=== PATIENT | female | born 1955 | race Caucasian/White ===

== ENCOUNTER 2016-12-31 09:25 | Emergency (ER) | payer OTHER ==
[~2016-12-31] VITALS: Ht 162.6 cm; Wt 70.5 kg
[~2016-12-31 09:25] MED LIST: ASPI81TA2 PO; GABA300C6 PO; MULT-1018 PO; TYL325 PO; VITA400T9 PO
[2016-12-31 09:28] VITALS: BP 115/79; PULSE 81; RESP 16; O2SAT 98
--- NOTE | 2016-12-31 09:43 | ED.REPORT ---
HPI-General Illness Date of Service Dec 31, 2016 ED Provider: Rachael Earl MD A 61 year old female presents to the ED complaining of chest pain. Within the past couple weeks, the patient reports experiencing intermittent symptoms of chest pain present in different parts of her chest, particularly in the center and left. Chest pain has regularly been accompanied by tingling in both arms, dizziness, and nausea, and the patient states that they have generally not been feeling like themselves. Symptoms became worse last night. She reports that the symptoms are not exacerbated or relieved by anything. She reports feeling dizzy and being in a little bit of pain right now. Yesterday, she recently had an echocardiogram performed for a heart murmur. She took 2 baby aspirin this morning. She is accompanied by her and brother. Nursing Notes Stated Complaint: CHEST PAIN Chief Complaint: Chest Pain Nursing Notes Reviewed: Yes Allergies: Coded Allergies: No Known Allergies (Verified , 12/31/16) Scheduled Acetaminphen-Expunged Drug, Do Not Renew! (Acetaminphen-Expunged Drug, Do Not Renew!) 325 Mg Tablet 650 MG PO Q4HP Aspirin-Expunged Drug, Do Not Renew! (Aspirin-Expunged Drug, Do Not Renew!) 81 Mg Tablet 81 MG PO DAILY Gabapentin-Expunged Drug, Do Not Renew! (Gabapentin-Expunged Drug, Do Not Renew! ) 300 Mg Capsule 300 MG PO 1-2 daily MULTIVITAMIN-Expunged Drug, Do Not Renew! (MULTI VITAMIN -Expunged Drug, Do Not Renew!) 1 Each Tablet 1 EACH PO DAILY VITAMIN E-Expunged Drug, Do Not Renew! (VITAMIN E-Expunged Drug, Do Not Renew!) 400 Unit Tablet 400 UNIT PO 1-2 daily General Time Seen by MD: 09:42 Chief Complaint Chest pain Hx Obtained From: Patient, Spouse Arrived By: Walk-in Sudden in Onset?: No Onset Occurred: Onset unknown (Symptoms have been present for the last few weeks and got worse last night.) Symptom Duration: Intermittent Location: : Chest Severity: Current: Moderate Severity: Maximum: Moderate Recent Healthcare: Recent doctor visit Similar Sx Previous: No Past Medical History Past Medical History Dr. Jaycee Pacheco is patient's PCP. Echocardiogram done yesterday, result being microvalve regurgitation. Recently had tooth pulled and implant put in, subsequently given hydrocodone for recovery. Takes Gabapentin for hot flashes. Hx of Ovarian cancer, 7 years ago resulting in radical hysterectomy. Patient has an appointment to see Dr. Cassidy, bulb grader in a week. Past Surgical History Reports: Hysterectomy (Radical hysterectomy for ovarian cancer. ) Family History Mother had aortic aneurism. No family Hx of heart disease. Smoking History Never Smoker Social History Alcohol Use: Denies alcohol use Drug Use: Denies drug use Ambulatory Status Independent Review of Systems Tingling sensation in both arms. Full Review of Systems Constitutional: Denies: Chills, Fever Respiratory: Denies: Non-productive cough Cardiovascular: Reports: Chest pain GI: Reports: Nausea, Denies: Abdominal pain, Diarrhea Neurologic: Reports: Dizziness Complete sys rev & neg: except as marked. Physical Exam Vital Signs Vital Signs Date Time Temp Pulse Resp B/P Pulse Ox O2 Delivery O2 Flow Rate FiO2 12/31/16 09:28 35.9 81 16 115/79 98 Room Air Initial VS: Reviewed Head / Eyes: Atraumatic, Normocephalic, PERRL ENT: Mucous membranes moist, Conjunctiva normal, No scleral icterus Respiratory: Breath sounds normal, Clear to auscultation, No respiratory distress Skin: Warm, Dry, No cyanosis Neurologic: Alert, Oriented, Nonfocal Heart Sounds / Murmur: Positive: Murmur present... (4/6 diastolic murmur heard best at the apex. ) Abdomen: BS normoactive Upper Extremities Upper Extremity / MS: No swelling, No edema Wrist / Hand: No swelling, No edema Lower Extremity / Pelvis / MS: No swelling, No edema Ankle / Foot: No swelling, No edema Interpretation & Diagnostics Lab Results Interpretation Result Diagram: 12/31/16 0950 12/31/16 0950 Test 12/31/16 09:50 White Blood Count 4.5th/mm3 (3.8-10.1) Red Blood Count 5.32mil/mm3 (3.90-5.20) Hemoglobin 14.6g/dL (12.0-15.6) Hematocrit 43.1% (35.0-46.0) Mean Corpuscular Volume 81.0fL (81-100) Mean Corpuscular Hemoglobin 27.4pg (27.0-35.0) Mean Corpuscular Hemoglobin Concent 33.9% (32.0-37.0) Red Cell Distribution Width 13.8% (12.3-15.4) Platelet Count 191bil/L (150-400) Neutrophils (%) (Auto) 51.6% (40-74) Lymphocytes (%) (Auto) 31.6% (14-46) Monocytes (%) (Auto) 10.6% (4-12) Eosinophils (%) (Auto) 5.8% (0-5) Basophils (%) (Auto) 0.4% (0-3) Sodium Level 136mEq/L (134-144) Potassium Level 3.8mEq/L (3.5-5.2) Chloride Level 98mEq/L (97-108) Carbon Dioxide Level 23mmol/L (18-29) Blood Urea Nitrogen 15mg/dL (8-27) Creatinine 0.79mg/dL (0.57-1.00) Estimat Glomerular Filtration Rate 106mL/min (>59) Glucose Level 102mg/dL (60-99) Calcium Level 10.5mg/dL (8.5-10.1) Magnesium Level 2.2mg/dL (1.6-2.6) Total Bilirubin 0.4mg/dL (0.0-1.2) Aspartate Amino Transf (AST/SGOT) 27U/L (0-50) Alanine Aminotransferase (ALT/SGPT) 17U/L (0-32) Alkaline Phosphatase 87U/L (25-165) Troponin T < 0.010ug/L (0.0-0.011) Total Protein 8.1g/dL (6.4-8.4) Albumin 4.6g/dL (3.4-5.0) Hold Reynolds Top Tube Received (Received) Lab Results Interpretation: Echocardiogram Report Name: JAZLYN WOODS Alejandrina Begum te: 12/23/2016 Height: 63 in Hospital Exam Location: [facility] Weight: 158 lb Gender: Female BSA: 1.7 m2 : 1955 Age: 61 yrs BP: 119/74 mmHg Reason For Study: Murmur Ordering Physician: Performed By: Shreya Castellano Interpretation Summary The left ventricle is normal in size, wall thickness, and systolic function without any focal wall motion abnormalities. The ejection fraction is estimated to be 60-65%. The right ventricle is normal in size, thickness and function. The left atrium is mildly dilated. The right atrium is normal in size. There is prolapse of the posterior mitral valve leaflet(s). There is at least moderate mitral regurgitation. Severity quantitation could be underestimated due to the eccentric nature of the jet. Flow reversal noted in pulmonary veins consistent with significant mitral regurgitation. Consider LOVE to further evaluate mitral regurgitation. There is no other significant valvular heart disease. The aortic root is normal size. ECG Interpretation Time: 09:58 Interpreted by: ED physician Normal ECG Interpretation: Normal rate, Normal sinus rhythm, No acute ischemic changes, Normal QRS, Normal axis, Normal intervals, No change from prior ECGs, Adequate tracing X-Ray Chest Interpretation Chest Xray Interpretation: IMPRESSION: 1. No acute cardiopulmonary disease. Dictated by: Jf Rodriguez M.D. on 12/31/2016 at 10:55 Approved by: Jf Rodriguez M.D. on 12/31/2016 at 10:56 Interpretation / Wet Read by: Interpret - Radiologist Re-Eval/Medical Decision Source of Hx: Old records Time of Eval: 12:38 Re-Evaluation/Progress Note: Rechecked patient, explained test results, diagnosis, and plan for discharge. Empahsized that the patient needs to follow up with Dr. Cassidy, bulb grader. Patient understands and agrees with the plan. Counseled Regarding: Diagnosis, Lab results, Need for follow-up, When/why to return to ED Discharge & Departure Primary Impression: Non-cardiac chest pain Disposition: Home Discharge Condition All VS Reviewed: Yes Condition: Improved Additional Instructions: Your lab work, chest XRay and ECG, were very reassuring. There is no evidence of acute or life-threatening issues identified. Your echocardiogram was reviewed and you need to keep your appointment next week with the bulb grader. There does not appear to be anything severe enough that you need to be in the hospital. I did not find a specific reason to explain your symptoms at this time. If you develop fevers, feeling like you going to pass out or actually did not pass out , increased chest pain, changing symptoms, or other symptoms that concern you please return to the ED. I do feel that an emergency room evaluation was appropriate for you today. I will send a copy of my note to Drs. Cassidy and Tara. Thank you for letting me help today. Referrals: Jaycee Pacheco MD (PCP) Scribe Attestation Portions of this note were transcribed by Charlie Aleman. I, Dr. Earl personally performed the history, physical exam and medical decision-making; I reviewed and confirmed the accuracy of the information in the transcribed note. Signed by: Kojo Marvin, 12/31/2016 8200. copies to: Adeel Cassidy MD; Jaycee Pacheco MD, Shawna L MD Dec 31, 2016 09:43 Charlie Aleman Dec 31, 2016 09:59
[2016-12-31 10:06] LABS: BASOPHILS % (AUTO) 0.4 % (0-3); EOSINOPHILS % (AUTO) 5.8 % (0-5); MONOCYTES % (AUTO) 10.6 % (4-12); Mean Corpuscular Hemoglobin 27.4 pg (27.0-35.0); NEUTROPHILS % (AUTO) 51.6 % (40-74); Platelet Count 191 bil/L (150-400)
[2016-12-31 10:34] LABS: TROPONIN T < 0.010 ug/L (0.0-0.011)
[2016-12-31 10:46] LABS: Magnesium 2.2 mg/dL (1.6-2.6)
--- NOTE | 2016-12-31 10:58 | DRSVH ---
PROCEDURE: X-RAY CHEST ONE VIEW, PORTABLE ([id number]) INDICATIONS: chest pain TECHNIQUE: One view of the chest was acquired. COMPARISON: None. FINDINGS: Surgical changes and devices: None. Lungs and pleura: No pleural effusions or pneumothorax. Lungs are clear. Mediastinum: Mediastinal contours appear normal. Heart size is normal. Bones and chest wall: No suspicious bony lesions. Overlying soft tissues appear unremarkable. IMPRESSION: 1. No acute cardiopulmonary disease. Dictated by: Jf Rodriguez M.D. on 12/31/2016 at 10:55 Approved by: Jf Rodriguez M.D. on 12/31/2016 at 10:56
[2016-12-31 15:35] VITALS: BP 115/79; PULSE 81; RESP 16; O2SAT 98
[2017-01-06] MEDS ORDERED: LISI-571 PO ×2 (12:47→12:50)
[2017-01-06] MEDS ORDERED: GABA600T2 PO (12:50)
[2017-01-06] MEDS ORDERED: VITA400C64 PO (12:50)
[2017-03-23] MEDS ORDERED: ASPI-973 PO (15:41)
[2017-03-23] MEDS ORDERED: MULT1CAP33 PO (15:41)
== END 2016-12-31 14:00 | disposition home or self-care (01) ==
LOC: SED 09:25
DX: R07.89 Other chest pain (principal); Z85.43 Personal history of malignant neoplasm of ovary; Z90.710 Acquired absence of both cervix and uterus; Z79.82 Long term (current) use of aspirin

== ENCOUNTER 2017-04-25 06:22 | Emergency (ER) | payer OTHER ==
[~2017-04-25] VITALS: Ht 162.6 cm; Wt 70.5 kg
[~2017-04-25 06:22] MED LIST changes: +ASPI-973 PO; -ASPI81TA2 PO; -GABA300C6 PO; +GABA600T2 PO; +LISI-571 PO; -MULT-1018 PO; +MULT1CAP33 PO; -VITA400T9 PO
[2017-04-25 06:29] VITALS: BP 126/66; PULSE 84; RESP 12; O2SAT 84
--- NOTE | 2017-04-25 06:48 | ED.REPORT ---
HPI-Chest Pain 40 and Over Date of Service Apr 25, 2017 ED Provider: Scar Marroquin MD Pt is a otherwise healthy 61 year old female who presents to the ED via EMS complaining of near syncopal episode onset prior to arrival at home. She c/o associated low blood pressure, post surgical pain on her right chest wall, neck rash, back pain localizing to her right shoulder blade, and difficulty speaking. Pt's reports that she had a less invasive mitral valve repair 1 week ago with axillary incision, which is now painful. The pt last took pain medication at 05:00 today. Nursing Notes Stated Complaint: NEAR SYNCOPE Chief Complaint: General Complaint Nursing Notes Reviewed: Yes Allergies: Coded Allergies: No Known Allergies (Verified , 04/25/17) Scheduled Acetaminphen-Expunged Drug, Do Not Renew! (Acetaminphen-Expunged Drug, Do Not Renew!) 325 Mg Tablet 650 MG PO Q4HP Aspirin (Aspirin) 81 Mg Tablet 81 MG PO DAILY Gabapentin (Gabapentin) 600 Mg Tablet 600 MG PO HS Lisinopril (Lisinopril) 5 Mg Tablet 10 MG PO BID Miscellaneous Medications Multivitamin (Multivitamins) 1 Each Capsule 1 EACH PO General Time Seen by MD: 06:38 Chief Complaint Other (Near syncope) Hx Obtained From: Patient, EMS Arrived By: Ambulance Sudden in Onset?: No Onset Occurred: Just prior to arrival Symptom Duration: Duration unknown Location: : Back Quality: Painful Severity: Current: Moderate Severity: Maximum: Moderate Recent Healthcare: Recent doctor visit Similar Sx Previous: No Past Medical History Past Medical History Notes: Dr. Jaycee Pacheco, PCP Dr. Rboles Ramirez [facility] surgeon Past Medical History Takes Gabapentin for hot flashes. Hx of Ovarian cancer, 7 years ago resulting in radical hysterectomy. Past Surgical History Reports: Hysterectomy, Tonsillectomy Family History Mother had aortic aneurism. No family Hx of heart disease. Smoking History Never Smoker Social History Alcohol Use: Denies alcohol use Drug Use: Denies drug use Other Social History: Good social support Ambulatory Status Independent Review of Systems Cardiovascular: Reports: Chest pain Musculoskeletal: Reports: Back pain Skin: Reports Rash Neurologic: Reports: Change LOC, Syncope, Unable to speak Complete sys rev & neg: except as marked. Physical Exam Initial Vital Signs Vital Signs (First) Date Time Temp Pulse Resp B/P Pulse Ox O2 Delivery O2 Flow Rate FiO2 04/25/17 06:29 36.7 84 12 126/66 84 Room Air Initial VS: Reviewed Head / Eyes: Atraumatic, Normocephalic Skin: Warm, Dry, No cyanosis Neurologic: Alert, Oriented, Nonfocal Psychiatric: Mood/affect normal, Behavior normal General/Constitutional: Awake, Alert, Cooperative Appearance / Presentation: Positive: Pale Respiratory / Chest: Atraumatic, Breath sounds NL, Breath sounds = bilat Posterior axillary incision on right side of chest wall; clean and dry without significant redness or drainage Cardiovascular: Heart rate NL, Regular rhythm, Heart sounds NL Abdomen: Atraumatic, Soft, Non-tender Neck: Atraumatic Erythematous ecchymotic rash on right neck Lower Extremity / Pelvis / MS: Neurologic intact, Vascular intact, No edema Upper Extremity / MS: Neurologic intact, Vascular intact, No edema Interpretation & Diagnostics Lab Results Interpretation Result Diagram: 04/25/17 0641 04/25/17 0641 Test 04/25/17 06:41 04/25/17 09:00 White Blood Count 11.4th/mm3 (3.8-10.1) Red Blood Count 4.83mil/mm3 (3.90-5.20) Hemoglobin 13.4g/dL (12.0-15.6) Hematocrit 40.0% (35.0-46.0) Mean Corpuscular Volume 82.8fL (81-100) Mean Corpuscular Hemoglobin 27.7pg (27.0-35.0) Mean Corpuscular Hemoglobin Concent 33.5% (32.0-37.0) Red Cell Distribution Width 13.6% (12.3-15.4) Platelet Count 380bil/L (150-400) Neutrophils (%) (Auto) 57.6% (40-74) Lymphocytes (%) (Auto) 23.0% (14-46) Monocytes (%) (Auto) 11.2% (4-12) Eosinophils (%) (Auto) 7.6% (0-5) Basophils (%) (Auto) 0.3% (0-3) Prothrombin Time 20.4sec (8.1-12.5) Prothromb Time International Ratio 1.88ratio Sodium Level 136mEq/L (134-144) Potassium Level 4.1mEq/L (3.5-5.2) Chloride Level 95mEq/L (97-108) Carbon Dioxide Level 24mmol/L (18-29) Blood Urea Nitrogen 17mg/dL (8-27) Creatinine 0.95mg/dL (0.57-1.00) Estimat Glomerular Filtration Rate 86mL/min (>59) Glucose Level 164mg/dL (60-99) Calcium Level 10.2mg/dL (8.5-10.1) Magnesium Level 2.2mg/dL (1.6-2.6) Total Bilirubin 0.4mg/dL (0.0-1.2) Aspartate Amino Transf (AST/SGOT) 40U/L (0-50) Alanine Aminotransferase (ALT/SGPT) 52U/L (0-32) Alkaline Phosphatase 118U/L (25-165) Troponin T 0.088ug/L (0.0-0.011) Total Protein 7.7g/dL (6.4-8.4) Albumin 4.1g/dL (3.4-5.0) Hold Urine Received (Received) ECG Interpretation ECG Interpretation: Sinus rhythm with a rate of 84. Probable left atrial enlargement. Probable left ventricular hypertrophy. Time: 06:41 Interpreted by: ED physician X-Ray Chest Interpretation Chest Xray Interpretation: IMPRESSION: Small right pleural effusion and basilar airspace opacity consistent with compressive atelectasis versus pneumonia. Continued radiographic surveillance to resolution is recommended. Dictated by: Quique Wynne RRA Interpreted: Shiv Carbone MD on 04/25/2017 at 9:50 View: Portable, 1 view Interpretation / Wet Read by: Interpret - Radiologist, Discussed w radiologist Re-Eval/Medical Decision Source of Hx: Old records Time of Eval: 08:52 Patient Status: Condition improved Re-Evaluation/Progress Note: Pt rechecked. Informed pt of x-ray and lab results, as well as plan to consult with her cardiac surgeon. All questions addressed. Time of Eval: 10:21 Re-Evaluation/Progress Note: Pt rechecked. Informed pt of consult with Dr. Borrero. Informed pt of plan for discharge. Pt understands and agrees with plan for discharge. F/U instructions and RTER warnings given. All questions addressed. Consultation : Consulted With: Surgeon Call Returned at: 09:42 Senior Software Analyst: Agrees with eval, Agrees with plan Note: Consult with Dr. Borrero, surgeon, commission auditor for Dr. Ramirez at [facility]. Discussed pt's case. Dr. Borrero suggests that the pain is likely pleural in nature and that this is a common associated side effect of the surgery that she had. Outpatient follow-up is appropriate in his opinion based on my description. Counseled Regarding: Diagnosis, Lab results Discharge & Departure Primary Impression: Pleural effusion Disposition: Home Discharge Condition All VS Reviewed: Yes Condition: Stable Patient Instructions: Pleural Effusion (ED) Additional Instructions: I believe that fluid collecting in the base of the right lung is the cause for the pain that you have been experiencing. This should likely resolve itself on its own over the coming days. Take Tylenol 1000 mg every 6 hours. This represents an increase in the dose that was previously prescribed. I also recommend oxycodone 10 mg tablets every 3 hours as needed for pain. You can increase the dose by one half tablet (5 mg) at each dose as long as there is not excessive sedation. If you are giving 20 mg every 3 hours for more than 24 hours, you should call the surgeon's clinic to discuss more urgent follow-up. If you are not significantly improved over the next couple of days, you should have an office visit before the weekend. Follow-up right away for fever greater than 100.6, fainting, excessive breathlessness or any other new or worrisome symptoms. Referrals: Jaycee Pacheco MD (PCP) Kojo Attestation Portions of this note were transcribed by Haley Persaud. I, Dr. Marroquin personally performed the history, physical exam and medical decision-making; I reviewed and confirmed the accuracy of the information in the transcribed note. Signed by: Kojo Martinez, 04/25/17 and 10:30. copies to: Jaycee Pacheco MD, Kirk H MD Apr 25, 2017 06:48 Haley Cope Apr 25, 2017 06:51
[2017-04-25 06:51] LABS: BASOPHILS % (AUTO) 0.3 % (0-3); EOSINOPHILS % (AUTO) 7.6 % (0-5); MONOCYTES % (AUTO) 11.2 % (4-12); Mean Corpuscular Hemoglobin 27.7 pg (27.0-35.0); Mean Corpuscular Volume 82.8 fL (81-100); NEUTROPHILS % (AUTO) 57.6 % (40-74); Platelet Count 380 bil/L (150-400)
[2017-04-25] MEDS: fentaNYL-PF 50 mCg/mL 2 mL Inj IVPUSH PRN ×4 (07:00→10:20)
[2017-04-25] MEDS: Ondansetron 2 mg/mL 2 mL Inj IVPUSH PRN ×2 (07:01→07:49)
[2017-04-25 07:19] LABS: Magnesium 2.2 mg/dL (1.6-2.6)
[2017-04-25 07:27] LABS: TROPONIN T 0.088 ug/L (0.0-0.011)
[2017-04-25 08:02] VITALS: BP 123/77; PULSE 83; RESP 13; O2SAT 96
[2017-04-25] MEDS ORDERED: fentaNYL-PF 50 mCg/mL 2 mL Inj IVPUSH PRN (08:30)
[2017-04-25 09:07] LABS: INR 1.88 ratio
--- NOTE | 2017-04-25 09:53 | DRSVH ---
PROCEDURE: X-RAY CHEST ONE VIEW, PORTABLE ([id number]) INDICATIONS: syncope TECHNIQUE: One view of the chest was acquired. COMPARISON: [facility], CR, XR CHEST 1VW (PORTABLE), 12/31/2016, 10:02. FINDINGS: Surgical changes and devices: Prior valvular replacement. Lungs and pleura: Small right pleural effusion present and right basilar patchy airspace opacity. Janie ngs otherwise are clear. Mediastinum: Mediastinal contours appear normal. Heart size is normal. Bones and chest wall: No suspicious bony lesions. Overlying soft tissues appear unremarkable. IMPRESSION: Small right pleural effusion and basilar airspace opacity consistent with compressive ate lectasis versus pneumonia. Continued radiographic surveillance to resolution is recommended. Dictated by: Quique ANGEL Interpreted: Shiv Carbone MD on 04/25/2017 at 9:50 Transcribed by: JOESPH on 04/25/2017 at 9:51 Approved by: Shiv Carbone M.D. on 04/25/2017 at 11:52
[2017-04-25 10:12] VITALS: BP 121/80; PULSE 87; RESP 16; O2SAT 97
[2017-04-25] MEDS ORDERED: OXYC10TA8 PO (10:45)
[2017-04-25 10:55] VITALS: BP 122/73; PULSE 88; RESP 13; O2SAT 98
[2017-04-25 11:00] VITALS: BP 110/80; PULSE 108; RESP 14; O2SAT 98
[2017-04-25 11:11] VITALS: BP 110/80; PULSE 108; RESP 14; O2SAT 98
== END 2017-04-25 11:13 | disposition home or self-care (01) ==
LOC: SED 06:22
DX: J90 Pleural effusion, not elsewhere classified (principal); R03.1 Nonspecific low blood-pressure reading; G89.18 Other acute postprocedural pain; R21 Rash and other nonspecific skin eruption; M54.9 Dorsalgia, unspecified; Z98.890 Other specified postprocedural states; Z85.43 Personal history of malignant neoplasm of ovary; Z90.710 Acquired absence of both cervix and uterus; Z79.82 Long term (current) use of aspirin
CPT/HCPCS: 36415; 71010; 80053; 83735; 84484; 85025; 85610; 93005; 96374; 96375; 96376; 99285; J2405; J3010

== ENCOUNTER 2017-05-03 10:26 | Emergency (ER) | payer OTHER ==
[~2017-05-03] VITALS: Ht 161.3 cm; Wt 68.2 kg
[~2017-05-03 10:26] MED LIST changes: +OXYC10TA8 PO
[2017-05-03 10:28] VITALS: BP 111/79; PULSE 79; RESP 14; O2SAT 100
--- NOTE | 2017-05-03 10:38 | ED.REPORT ---
HPI-Syncope Date of Service May 03, 2017 ED Provider: Dr. Joseph Pt is a 61 year old female with a hx of recent mitral valve replacement on Warfarin presenting to the ED after a syncopal episode just prior to arrival. Associated symptoms include fatigue, dizziness when sitting, and lightheadedness. She states that she was up walking around last night and had nausea, lightheadedness, and dizziness (the room was spinning) but denies syncope, diaphoresis or vision changes. Then today, she was in Dr. Cassidy's office and had the same symptoms plus a syncopal episode. Dr. Cassidy said she had a regular pulse during the episode. She states that these are very similar to symptoms she had 1 week ago which she came into the ED for. Nursing Notes Stated Complaint: SYNCOPAL Chief Complaint: Seizure Nursing Notes Reviewed: Yes Allergies: Coded Allergies: No Known Allergies (Verified , 05/03/17) Scheduled Acetaminphen-Expunged Drug, Do Not Renew! (Acetaminphen-Expunged Drug, Do Not Renew!) 325 Mg Tablet 650 MG PO Q4HP Aspirin (Aspirin) 81 Mg Tablet 81 MG PO DAILY Gabapentin (Gabapentin) 600 Mg Tablet 600 MG PO HS Lisinopril (Lisinopril) 5 Mg Tablet 10 MG PO BID Scheduled PRN oxyCODONE (oxyCODONE) 10 Mg Tablet 10 MG PO Q3H PRN PRN For Pain Miscellaneous Medications Multivitamin (Multivitamins) 1 Each Capsule 1 EACH PO General Time Seen by Provider: 10:51 Chief Complaint Lost consciousness Syncope Description: Single episode Hx Obtained From: Patient, EMS Arrived By: Ambulance Onset Occurred: Just prior to arrival Symptom Duration: Since onset Recent Healthcare: Recent doctor visit, Recent hospitalization, Previous surgery Similar Sx Previous: Yes Past Medical History Past Medical History Notes: Dr. Jaycee Pacheco, [facility] Past Medical History Takes Gabapentin for hot flashes. Hx of Ovarian cancer, 7 years ago resulting in radical hysterectomy. Past Surgical History Mitral valve replacement April 18 2017 Reports: Hysterectomy, Tonsillectomy Family History Mother had aortic aneurism. No family Hx of heart disease. Smoking History Never Smoker Social History Alcohol Use: Denies alcohol use Drug Use: Denies drug use Other Social History: Good social support Ambulatory Status Independent Review of Systems Constitutional: Reports: Fatigue GI: Reports: Nausea, Denies: Vomiting Skin: Denies Diaphoresis Neurologic: Reports: Dizziness, Lightheaded, Syncope, Denies: Vision change Complete sys rev & neg: except as marked. Physical Exam Initial Vital Signs Vital Signs (First) Date Time Temp Pulse Resp B/P Pulse Ox O2 Delivery O2 Flow Rate FiO2 05/03/17 10:28 36.5 79 14 111/79 100 Room Air Initial VS: Reviewed, Vital signs normal Head / Eyes: Atraumatic, Normocephalic, PERRL ENT: Mucous membranes moist, Conjunctiva normal, No scleral icterus Neck: Supple, Non-tender, Full range of motion Abdomen / GI: Soft, Non-tender, No guarding, No rebound, No distention Upper Extremities: Vascular intact, Neuro intact, No swelling, No tenderness Skin: Warm, Dry, No cyanosis Psychiatric: Mood/affect normal, Behavior normal, Normal thought content General/Constitutional: Awake, Alert, No acute distress, Well appearing Respiratory / Chest: Breath sounds NL, Breath sounds = bilat, No respiratory distress, No rales, No rhonchi, No wheezing Cardiovascular: Heart rate NL, Regular rhythm, Heart sounds NL, No murmurs, Cap refill not delayed, Peripheral circulation NL Neurologic: Oriented X3, Speech NL, No motor deficits, No sensory deficits, CN II - XII intact, Reflexes equal bilat, Cerebellar NL Interpretation & Diagnostics Lab Results Interpretation Result Diagram: 05/03/17 1105 05/03/17 1105 Test 05/03/17 11:05 05/03/17 11:15 White Blood Count 11.2th/mm3 (3.8-10.1) Red Blood Count 4.38mil/mm3 (3.90-5.20) Hemoglobin 12.0g/dL (12.0-15.6) Hematocrit 36.4% (35.0-46.0) Mean Corpuscular Volume 83.1fL (81-100) Mean Corpuscular Hemoglobin 27.4pg (27.0-35.0) Mean Corpuscular Hemoglobin Concent 33.0% (32.0-37.0) Red Cell Distribution Width 13.3% (12.3-15.4) Platelet Count 477bil/L (150-400) Neutrophils (%) (Auto) 80.0% (40-74) Lymphocytes (%) (Auto) 10.4% (14-46) Monocytes (%) (Auto) 5.0% (4-12) Eosinophils (%) (Auto) 4.0% (0-5) Basophils (%) (Auto) 0.4% (0-3) Prothrombin Time 20.7sec (8.1-12.5) Prothromb Time International Ratio 1.91ratio Sodium Level 138mEq/L (134-144) Potassium Level 4.3mEq/L (3.5-5.2) Chloride Level 99mEq/L (97-108) Carbon Dioxide Level 26mmol/L (18-29) Blood Urea Nitrogen 17mg/dL (8-27) Creatinine 0.74mg/dL (0.57-1.00) Estimat Glomerular Filtration Rate 115mL/min (>59) Glucose Level 137mg/dL (60-99) Calcium Level 9.3mg/dL (8.5-10.1) Magnesium Level 2.0mg/dL (1.6-2.6) Hold Reynolds Top Tube Received (Received) Hold Urine Received (Received) ECG Interpretation ECG Interpretation: Normal intervals, normal axis. No acute ST or T wave changes. Time: 11:16 Interpreted by: ED physician Normal ECG Interpretation: Normal rate (80), Normal sinus rhythm X-Ray Chest Interpretation Chest Xray Interpretation: IMPRESSION: Overall, unchanged examination since 04/25/17. Recommend continued radiographic surveillance to document resolution. Dictated by: Mikey Israel M.D. on 05/03/2017 at 12:02 View: Portable, 1 view Interpretation / Wet Read by: Interpret - Radiologist Re-Eval/Medical Decision Med Decision/Clinical Course This patient was sent here by Dr. Christianson ER she had a syncopal episode while he was speaking with her. She did have some prodromal symptoms and he said she had a steady pulse. Upon arrival of EMS the patient was awake she had low blood pressure initially which came up when she was placed [facility] (recommended that if everything is normal she stop her Lasix and metoprolol which she will were started due to her recent mitral valve procedure. He ordered a stat echo which he read as normal. Given her low blood pressure and prodromal symptoms do seem consistent with syncope related to her new medications. The patient did not have any trauma from her syncope. There was mention of seizure-like activity, however her symptoms were most consistent with syncope, the patient did not have any postictal period. Re-Evaluation/Progress #1: Time of Eval: 12:31 Patient Status: Condition improved Re-Evaluation/Progress Note: Pt complains of pain. She just had the echo. Re-Evaluation/Progress #2: Time of Eval: 13:35 Patient Status: Condition improved Re-Evaluation/Progress Note: Discussed plan for discharge. Pt understands and agrees with plan. Consultation : Referral / Consult Name: Adeel Cassidy MD Consulted With: Cardiology Call Returned at: 13:13 Filtration Supervisor: Will see patient Note: Stop lasix and metrolprolol. Pt can be discharged and call if she develops leg swelling or increased SOB. Counseled Regarding: Diagnosis, Lab results, Need for follow-up, When/why to return to ED Discharge & Departure Impression: Primary Impression: Syncope Syncope type: unspecified Qualified Code: R55 - Syncope and collapse Disposition: Home Discharge Condition All VS Reviewed: Yes Condition: Improved Patient Instructions: Syncope (ED) Additional Instructions: No dangerous cause for your symptoms was identified. Stop taking Lasix and metoprolol. Call Dr Cassidy if you develop any new or worsening symptoms such as leg swelling or increased SOB. Follow up with Dr. Cassidy in the next couple weeks. Referrals: Jaycee Pacheco MD (PCP) Scribe Attestation Portions of this note were transcribed by Frannie Amos. I, Dr. Joseph personally performed the history, physical exam and medical decision-making; I reviewed and confirmed the accuracy of the information in the transcribed note. Signed by : Kojo Rosado, 05/03/2017. copies to: Jaycee Pacheco MD, Jena M MD May 03, 2017 10:38 FRANNIE AMOS May 03, 2017 10:57
[2017-05-03] MEDS ORDERED: 0.9% Sodium Chloride 500 ML IV ONE (10:45)
[2017-05-03 10:55] VITALS: BP 108/79; PULSE 77; RESP 18; O2SAT 99
[2017-05-03 11:18] LABS: BASOPHILS % (AUTO) 0.4 % (0-3); Mean Corpuscular Hemoglobin 27.4 pg (27.0-35.0); Mean Corpuscular Volume 83.1 fL (81-100); Platelet Count 477 bil/L (150-400)
[2017-05-03 11:31] LABS: INR 1.91 ratio
--- NOTE | 2017-05-03 12:05 | DRSVH ---
PROCEDURE: X-RAY CHEST ONE VIEW, PORTABLE ([id number]) INDICATIONS: syncope TECHNIQUE: One view of the chest was acquired. COMPARISON: [facility], CR, XR CHEST 1VW (PORTABLE), 04/25/2017, 6:56. FINDINGS: Surgical changes and devices: Evaluate prosthesis Lungs and pleura: There is unchanged small right pleural effusion with adjacent atelectasis. Mediastinum: Mediastinal contours appear normal. Heart size is normal. Bones and chest wall: No suspicious bony lesions. Overlying soft tissues appear unremarkable. IMPRESSION: Overall, unchanged examination since 04/25/17. Recommend continued radiographic surveillan ce to document resolution Dictated by: Mikey Israel M.D. on 05/03/2017 at 12:02 Approved by: Mikey Israel M.D. on 05/03/2017 at 12:04
[2017-05-03] MEDS ORDERED: oxyCODONE-Acetamin 5-325 mg Tablet PO ONE (12:35)
--- NOTE | 2017-05-03 13:12 | DRSVH ---
[facility] [address] [place] [address] Echocardiogram Report Name: JAZLYN WOODS te: 05/03/2017 Height: 63.5 in Hospital Exam Location: [facility] Weight: 150 lb Gender: Female BSA: 1.7 m2 : 1955 Age: 61 yrs BP: 111/79 mmHg Reason For Study: Syncope, S/P Mitral repair Ordering Physician: HOSPITALIST CLIFFORDerformed By: Jeaneth Gunderson Referring Physician: Adeel Cassidy Interpretation Summary The left ventricle is grossly normal size. Left ventricular systolic function is normal without focal wall motion abnormalities. Left ventricular ejection fraction is estimated to be 55%. LVEF has borderline decreased but which is expected after MV repair surgery. Unable to accurately assess diastolic function due to mitral valve repair. The right ventricle is normal in size and function. Pulmonary artery pressures cannot be estimated because of the lack of a measurable TR jet velocity. The left atrial size is normal. Right atrial size is normal. The mitral valve has been surgically repaired and an annuloplasty ring sewn in place. The mitral valve mean gradient is 4 mmHg. There is trace mitral regurgitation, which has significantly improved since prior study. There is no other significant valvular heart disease. The aortic root is normal size. There is no pericardial effusion. Procedure: A two-dimensional transthoracic echocardiogram with color flow and Doppler was performed. The study quality was technically adequate. Comparison is made with the echocardiogram of 01/06/2017. The patient was in normal sinus rhythm during the exam. Left Ventricle: The left ventricle is grossly normal size. Left ventricular wall thickness is normal. Left ventricular systolic function is normal without focal wall motion abnormalities. Left ventricular ejection fraction is estimated to be 55%. Unable to accurately assess diastolic function due to mitral valve repair. Right Ventricle: The right ventricle is normal in size and function. Atria: The left atrial size is normal. Right atrial size is normal. The interatrial septum is intact with no evidence for an atrial septal defect. Mitral Valve: The mitral valve has been surgically repaired and an annuloplasty ring sewn in place. The mitral valve mean gradient is 4 mmHg. There is trace mitral regurgitation. Aortic Valve: The aortic valve is trileaflet. The aortic valve opens well. The aortic valve is slightly calcified. No aortic regurgitation is present. Tricuspid Valve: The tricuspid valve is normal in structure and function. There is trace tricuspid regurgitation. Pulmonary artery pressures cannot be estimated because of the lack of a measurable TR jet velocity. Pulmonic Valve: The pulmonic valve is not well seen, but is grossly normal. There is trace pulmonic regurgitation. There is no other significant valvular heart disease. Great Vessels: The aortic root is normal size. The ascending aorta is at the upper limits of normal in size. The IVC is dilated (diameter is greater than 2.1 cm) yet it collapses greater than 50% with a sniff. This suggests a right atrial pressure of 8 mm Hg. Pericardium/ Pleura There is no pericardial effusion. There is no pleural effusion. MMode/2D Measurements & Calculations LVIDd: 4.3 cm RA long axis LVOT diam LVIDs: 3.0 cm LA A2 area: 16.3 cm : 2.0 cm FS: 29.6 % LA A4 area: 17.5 cm RA area IVSd: 0.91 cm LA length (vol): 4.9 cm LVPWd: 0.93 cm LA vol: 49.6 ml : 14.4 cm RA vol: 38.9 ml LA vol index: 28.8 ml/m RA IVC diam: 2.3 cm : 22.6 mm2 LV cruz. diameter/BSA LV sys. diameter/BSA (cm/m^2): 2.5 (cm/m^2): 1.8 Doppler Measurements & Calculations Ao V2 max: 125.5 cm/secMV E max prabhakar MV E/A: 1.3 PA V2 max Ao max P.3 mmHg : 120.9 cm/sec Med Peak E' Prabhakar : 60.4 cm/sec Ao mean P.9 mmHg MV A max prabhakar PA mean PG LVOT Max Prabhakar : 93.3 cm/sec E/E' med: 20.5 : 0.87 mmHg : 110.1 cm/sec MVA(VTI): 2.0 cm2 Lat Peak E' Prabhakar GOMEZ(I,D): 2.7 cm sev ratio: 0.88 E/E' lat: 17.7 E/e' average MV V2 mean: 91.0 cm/secAo V2 mean LV V1 max PG PA V2 mean MV mean P.7 mmHg : 95.3 cm/sec : 44.8 cm/sec MV V2 VTI: 36.1 cm Ao V2 VTI: 26.7 cm LV V1 VTI: 23.6 cmPA pr(Accel) GOMEZ(V,D): 2.7 cm2 : 13.6 mmHg GOMEZ indexed to BSA (cm^2/m^2): 1.6 Reading Physician:LISSETH
[2017-05-03 13:50] VITALS: BP 116/75; PULSE 87; RESP 15; O2SAT 99
== END 2017-05-03 13:50 | disposition home or self-care (01) ==
LOC: SED 10:26
DX: R55 Syncope and collapse (principal); Z79.82 Long term (current) use of aspirin; Z79.01 Long term (current) use of anticoagulants; Z95.2 Presence of prosthetic heart valve; Z85.43 Personal history of malignant neoplasm of ovary
CPT/HCPCS: 36415; 71010; 80048; 83735; 85025; 85610; 93005; 96360; 99285; C8929; J7040

== ENCOUNTER 2017-06-11 10:14 | Emergency (ER) | payer OTHER ==
[~2017-06-11] VITALS: Ht 162.6 cm; Wt 70.5 kg
[2017-06-11 10:20] VITALS: BP 142/83; PULSE 97; RESP 22; O2SAT 100
--- NOTE | 2017-06-11 10:22 | ED.REPORT ---
HPI-General Illness Date of Service Jun 11, 2017 ED Provider: Rashard Kunz MD Pt is a 62 y/o female anticoagulated on Warfarin w/ a hx of mitral regurgitation s/p mitral valve repair on 04/18, presenting to the ED c/o CP onset yesterday. She was most recently evaluated in this ED on 05/03/17 for a syncopal event at which time she received a STAT echocardiogram which was reassuring. She was noted to have orthostatic VS changes at that time. Her syncope was thought to be related to recently starting Lasix and metoprolol. Dr. Cassidy recommended she stop these medications. The patient was subsequently seen at Urgent Care today now complaining of mild SOB for the last 4 days along with pleuritic chest pain which has been gradually worsening. She was sent to the ED for further evaluation. The patient has been using an incentive spirometer intermittently ever since her surgery and today used it and noticed she was not able to achieve her typical values. She rode her horse yesterday for the first time in a while and experienced chest pain which she thought to be musculoskeletal and became positional throughout the day. She did have a stressful long day a few days ago. There is no history of CAD, pain is not worse with exertion. She did have some mild burping this morning. There is no history of PE or DVT, recent immobilization. Pt denies calf swelling or tenderness, cough, fever. Nursing Notes Stated Complaint: CHEST PAIN,TROUBLE BREATHING Chief Complaint: Chest Pain Nursing Notes Reviewed: Yes Allergies: Coded Allergies: No Known Allergies (Verified , 05/03/17) Scheduled Acetaminphen-Expunged Drug, Do Not Renew! (Acetaminphen-Expunged Drug, Do Not Renew!) 325 Mg Tablet 650 MG PO Q4HP Aspirin (Aspirin) 81 Mg Tablet 81 MG PO DAILY Gabapentin (Gabapentin) 600 Mg Tablet 600 MG PO HS Lisinopril (Lisinopril) 5 Mg Tablet 10 MG PO BID Scheduled PRN Ibuprofen (Ibuprofen) 600 Mg Tablet 600 MG PO TID PRN PRN For Pain oxyCODONE (oxyCODONE) 10 Mg Tablet 10 MG PO Q3H PRN PRN For Pain Miscellaneous Medications Multivitamin (Multivitamins) 1 Each Capsule 1 EACH PO General Time Seen by MD: 10:21 Chief Complaint Chest pain Hx Obtained From: Patient Arrived By: Walk-in Sudden in Onset?: No Onset Occurred: Yesterday Symptom Duration: Intermittent Location: : Chest Quality: Painful, Pleuritic Severity: Current: Moderate Severity: Maximum: Moderate Similar Sx Previous: No Past Medical History Past Medical History Notes: Dr. Jaycee Pacheco, PCP Dr. Robles Ramirez, cardiac surgeon Past Medical History Mitral regurgitation s/p mitral valve repair Takes Gabapentin for hot flashes. Hx of Ovarian cancer, 7 years ago resulting in radical hysterectomy. Past Surgical History Mitral valve replacement April 18 2017 at [facility] Reports: Hysterectomy, Tonsillectomy Family History Mother had aortic aneurism. No family Hx of heart disease. Smoking History Never Smoker Social History Alcohol Use: Denies alcohol use Drug Use: Denies drug use Other Social History: Good social support Ambulatory Status Independent Review of Systems Full Review of Systems Constitutional: Denies: Chills, Fever Respiratory: Reports: Pleuritic pain, Shortness of breath, Denies: Non-productive cough Cardiovascular: Reports: Chest pain, Denies: Dyspnea on exertion GI: Denies: Abdominal pain, Vomiting Musculoskeletal: Denies: Extremity pain, Extremity swelling Complete sys rev & neg: except as marked. Physical Exam Vital Signs Vital Signs Date Time Temp Pulse Resp B/P Pulse Ox O2 Delivery O2 Flow Rate FiO2 06/11/17 14:27 36.5 95 16 112/60 100 Room Air 06/11/17 13:57 95 16 112/60 100 Room Air 06/11/17 11:27 91 12 106/72 97 Room Air 06/11/17 10:20 36.5 97 22 142/83 100 Room Air Initial VS: Reviewed, Vital signs normal Head / Eyes: Atraumatic, Normocephalic ENT: Mucous membranes moist, Conjunctiva normal Neck: Full range of motion Abdomen / GI: Soft, Non-tender, No guarding, No rebound, No distention Extremities: Vascular intact, Neuro intact, No swelling Skin: Warm, Dry, No cyanosis Neurologic: Alert, Oriented, Nonfocal Psychiatric: Mood/affect normal, Behavior normal, Normal thought content General/Constitutional: Awake, Alert, No acute distress, Well appearing, Cooperative, Not toxic appearing Respiratory / Chest: Breath sounds NL, Breath sounds = bilat, No respiratory distress, No rales, No rhonchi, No wheezing, No stridor Well healing surgical incisions about the right lateral chest wall Cardiovascular: Heart rate NL, Regular rhythm, Heart sounds NL, No gallop, No murmurs, No rubs, Cap refill not delayed, Peripheral circulation NL Mitral valve click heard Interpretation & Diagnostics Lab Results Interpretation Result Diagram: 06/11/17 1041 06/11/17 1041 Test 06/11/17 10:41 White Blood Count 8.5th/mm3 (3.8-10.1) Red Blood Count 5.60mil/mm3 (3.90-5.20) Hemoglobin 15.2g/dL (12.0-15.6) Hematocrit 45.9% (35.0-46.0) Mean Corpuscular Volume 82.0fL (81-100) Mean Corpuscular Hemoglobin 27.1pg (27.0-35.0) Mean Corpuscular Hemoglobin Concent 33.1% (32.0-37.0) Red Cell Distribution Width 14.2% (12.3-15.4) Platelet Count 261bil/L (150-400) Neutrophils (%) (Auto) 70.7% (40-74) Lymphocytes (%) (Auto) 17.1% (14-46) Monocytes (%) (Auto) 8.7% (4-12) Eosinophils (%) (Auto) 3.0% (0-5) Basophils (%) (Auto) 0.4% (0-3) Prothrombin Time 14.7sec (8.1-12.5) Prothromb Time International Ratio 1.37ratio Sodium Level 138mEq/L (134-144) Potassium Level 4.1mEq/L (3.5-5.2) Chloride Level 99mEq/L (97-108) Carbon Dioxide Level 24mmol/L (18-29) Blood Urea Nitrogen 13mg/dL (8-27) Creatinine 0.79mg/dL (0.57-1.00) Estimat Glomerular Filtration Rate 106mL/min (>59) Glucose Level 102mg/dL (60-99) Calcium Level 10.6mg/dL (8.5-10.1) Magnesium Level 2.2mg/dL (1.6-2.6) Total Bilirubin 0.3mg/dL (0.0-1.2) Aspartate Amino Transf (AST/SGOT) 31U/L (0-50) Alanine Aminotransferase (ALT/SGPT) 19U/L (0-32) Alkaline Phosphatase 117U/L (25-165) Troponin T 0.010ug/L (0.0-0.011) Total Protein 8.6g/dL (6.4-8.4) Albumin 4.8g/dL (3.4-5.0) ECG Interpretation ECG Interpretation: Sinus rhythm rate 95 Normal axis, intervals No acute ST or T changes Compared to 05/03/17 no significant changes present Time: 10:45 Interpreted by: ED physician X-Ray Chest Interpretation Chest Xray Interpretation: IMPRESSION: No acute cardiopulmonary disease. Dictated by: Andi Hernandez M.D. on 06/11/2017 at 10:42 Approved by: Andi Hernandez M.D. on 06/11/2017 at 10:43 View: Portable, 1 view Interpretation / Wet Read by: Rehana w radiologist CT Chest Interpretation IMPRESSION: 1. No evidence for central pulmonary embolism. 2. No acute pulmonary disease. 3. Trace pericardial effusion is of uncertain etiology and clinical significance. Dictated by: Andi Hernandez M.D. on 06/11/2017 at 12:17 Approved by: Andi Hernandez M.D. on 06/11/2017 at 12:24 Study type: CT pulm angiogram Interpretation / Wet Read by: Interpret - Radiologist Re-Eval/Medical Decision Med Decision/Clinical Course Pt is a 62 y/o female anticoagulated on Warfarin w/ a hx of mitral regurgitation s/p mitral valve repair on 04/18, presenting to the ED c/o of mild shortness of breath and vague pleuritic CP onset yesterday. Patient reports that her symptoms started in the setting of recently exerting herself and going horseback riding for the first time since her surgery. Here in the emergency department the patient is afebrile with stable vital signs and in no apparent distress. Meds given: 3x baby ASA, Morphine EKG: Sinus rhythm rate 95 Normal axis, intervals No acute ST or T changes Compared to 05/03/17 no significant changes present Chest XR: No evidence of acute cardiopulmonary process Chest CTA: small pericardial effusion, otherwise negative Reviewed the patient's most recent echocardiogram dated 05/03/17. EF 55% expected after mitral valve surgery according to that report. No other concerning changes. Labs notable as below: CBC: unremarkable CMP: unremarkable Troponin: negative INR subtherapeutic at 1.37 CT angiogram was obtained that ruled out acute pulmonary embolism though the patient is subtherapeutic on her Coumadin raising her risk for PE. There is no evidence of pneumonia, pneumothorax as causes of the patient's chest pain. The nature of her pain is somewhat pleuritic and suggestive of pericarditis though she does not have classic EKG changes suggestive of pericarditis. That being said, CT angiogram reveals a small pericardial effusion. I suspect that this is to be expected in the setting of her recent surgery. This was discussed with the cardiac surgery team at [facility] and I confirmed that this is to be expected postoperatively and additionally may cause pericarditis type symptoms. They have recommended treating the patient with NSAIDs. The patient is comfortable with this plan and will follow up closely with her primary care physician and cardiac surgeon on an outpatient basis. She was given her first dose of ibuprofen here in the emergency department. Prior to discharge follow- up and return precautions were reviewed in detail with the patient who verbalized understanding and agreement with the plan. The patient was discharged in stable condition. Given her subtherapeutic INR she will increase her Coumadin dose for the next 2 days and follow-up with the anticoagulation clinic on Tuesday morning. Time of Eval: 13:28 Re-Evaluation/Progress Note: Pt rechecked. Informed pt of negative findings thus far. Awaiting cardiac surg to call back. Consultation : Call Returned at: 13:46 Crucible Packer: Agrees with eval, Agrees with plan Note: Discussed case with cardiothoracic surgeon. This amount of pericardial fluid is expected after surgery. It can cause pleuritic symptoms and pericarditis symptoms. Recommends Ibuprofen or short course of steroids. Counseled Regarding: Diagnosis, Lab results, Need for follow-up, When/why to return to ED Discharge & Departure Primary Impression: Pericarditis Pericarditis type: other type Chronicity: acute Qualified Code: I30.8 - Other forms of acute pericarditis Additional Impressions: Subtherapeutic international normalized ratio (INR) Pericardial effusion History of mitral valve repair Disposition: Home Discharge Condition All VS Reviewed: Yes Condition: Stable Patient Instructions: Chest Pain (ED), Pericardial Effusion (ED), Pleurisy (ED) Additional Instructions: Thank you for seeking care at the emergency room. It is difficult for us to make definitive diagnoses in the ED but we believe that you are experiencing pericarditis which may caused by a small amount of fluid around the heart (pericardial effusion) which is to be expected after a mitral valve repair. I discussed your case with your cardiothoracic surgeon today who agreed with this assessment. Our primary goal today in the Emergency Department was to evaluate you for any life-threatening conditions. Your evaluation was reassuring. No sign of heart attack or blood clot in the lung. Your INR is subtherapeutic today at 1.37. Take 10 mg Warfarin for the next 2 days (tonight and tomorrow). Call the Coumadin clinic tomorrow to schedule an appointment. You will be discharged with a prescription for Ibuprofen. Take 600 mg three times daily with food and water for the next week. You should follow-up with your cardiac surgeon within 1 week. You should return to the Emergency Department immediately if you develop fevers , vomiting, cough, worsening shortness of breath or chest pain, lightheadedness , weakness or any other concerning signs or symptoms. Thank you for letting us partake in your care today. Referrals: Jaycee Pacheco MD (PCP) Scribe Attestation Portions of this note were transcribed by Sacha Rollins. I, Dr. Kunz personally performed the history, physical exam and medical decision-making; I reviewed and confirmed the accuracy of the information in the transcribed note. copies to: Jaycee Pacheco MD, Beck O MD Jun 11, 2017 10:22 SACHA ROLLINS Jun 11, 2017 10:47
--- NOTE | 2017-06-11 10:44 | DRSVH ---
PROCEDURE: X-RAY CHEST ONE VIEW, PORTABLE ([id number]) INDICATIONS: 62 year-old female with chest pain. TECHNIQUE: One view of the chest was acquired. COMPARISON: [facility], CR, XR CHEST 1VW (PORTABLE), 05/03/2017, 11:42. [facility], CR, XR CHEST 1VW (PORTABLE), 04/25/2017, 6:56. [facility], CR, XR CHEST 1VW (PORT ABLE), 12/31/2016, 10:02. FINDINGS: Surgical changes and devices: Patient is status post cardiac valve replacement as before. Lungs and pleura: No pleural effusions or pneumothorax. Lungs are clear. Mediastinum: Mediastinal contours appear normal. Heart size is normal. Bones and chest wall: No suspicious bony lesions. Overlying soft tissues appear unremarkable. IMPRESSION: No acute cardiopulmonary disease. Dictated by: Andi Hernandez M.D. on 06/11/2017 at 10:42 Approved by: Andi Hernandez M.D. on 06/11/2017 at 10:43
[2017-06-11 10:52] LABS: BASOPHILS % (AUTO) 0.4 % (0-3); MONOCYTES % (AUTO) 8.7 % (4-12); Mean Corpuscular Hemoglobin 27.1 pg (27.0-35.0); NEUTROPHILS % (AUTO) 70.7 % (40-74); Platelet Count 261 bil/L (150-400)
[2017-06-11 11:17] LABS: TROPONIN T 0.01 ug/L (0.0-0.011)
[2017-06-11 11:27] VITALS: BP 106/72; PULSE 91; RESP 12; O2SAT 97
[2017-06-11 11:28] LABS: Magnesium 2.2 mg/dL (1.6-2.6)
--- NOTE | 2017-06-11 12:25 | DRSVH ---
PROCEDURE: CT ANGIO CHEST PULMONARY EMBOLISM ([id number]) INDICATIONS: 62 year-old female with pleuritic left chest pain. TECHNIQUE: After the administration of intravenous contrast, 2 mm thick sections acquired from the pulmonary api ligia to the posterior costophrenic angles. 3-dimensional maximum intensity projection (MIP) coronal a nd sagittal reformats were then acquired through the thorax. For radiation dose reduction, the follo wing was used: automated exposure control, adjustment of mA and/or kV according to patient size. COMPARISON: None. FINDINGS: Image quality: Excellent. Pulmonary arteries: Pulmonary arteries are normal in size, and demonstrate no intraluminal filling d efects to suggest central pulmonary embolism. Lungs and pleura: Lungs are clear. No pleural effusions or pneumothorax. Central and peripheral ai rways are patent. Mediastinum: Heart size is normal, with trace pericardial effusion. Patient is status post mitral v alve replacement. No mediastinal or hilar adenopathy. Thoracic aorta is normal in caliber and enhanc ement. Esophagus is normal in caliber, without hiatal hernia. Bones and chest wall: No suspicious bony lesions. Ribs and thoracic spine appear intact throughout. Thyroid gland is normal in size. No axillary or supraclavicular adenopathy. Abdomen: Visualized upper abdominal solid organs appear normal in the early arterial phase of enhanc ement. IMPRESSION: 1. No evidence for central pulmonary embolism. 2. No acute pulmonary disease. 3. Trace pericardial effusion is of uncertain etiology and clinical significance. Dictated by: Andi Hernandez M.D. on 06/11/2017 at 12:17 Approved by: Andi Hernandez M.D. on 06/11/2017 at 12:24
[2017-06-11 13:03] LABS: INR 1.37 ratio
[2017-06-11 13:57] VITALS: BP 112/60; PULSE 95; RESP 16; O2SAT 100
[2017-06-11] MEDS ORDERED: IBUP-1827 PO (14:18)
[2017-06-11 14:27] VITALS: BP 112/60; PULSE 95; RESP 16; O2SAT 100
== END 2017-06-11 14:36 | disposition home or self-care (01) ==
LOC: SED 10:14
DX: I30.8 Other forms of acute pericarditis (principal); R79.1 Abnormal coagulation profile; I31.3 Pericardial effusion (noninflammatory); Z85.43 Personal history of malignant neoplasm of ovary; Z95.2 Presence of prosthetic heart valve; Z79.01 Long term (current) use of anticoagulants; Z79.82 Long term (current) use of aspirin
CPT/HCPCS: 36415; 71010; 71275; 80053; 83735; 84484; 85025; 85610; 93005; 96374; 99285; J2270; Q9967